=== PATIENT | female | born 1965 | race Caucasian/White ===

== ENCOUNTER 2018-09-20 05:09 | Day surgery (SDC) | payer OTHER ==
[~2018-09-20 05:09] MED LIST: AMPDEX10CR PO; AMPHETAMINE; CYMBALTA; DIURETIC; FLUO10 PO; LEVSOD100 PO; THYROID; TIMO.25OPS BOTHEYES; TRIHYD253A PO
== END 2018-09-20 23:14 | disposition home or self-care (01) ==
LOC: MOI US 05:09 → MOI MAM 07:45 → MOI US 07:45
DX: N64.1 Fat necrosis of breast (principal); N63.10 Unspecified lump in the right breast, unspecified quadrant
CPT/HCPCS: 19083; 77065; 88305; 88341; 88342; G0279

== ENCOUNTER 2020-07-12 09:08 | Day surgery (SDC) | payer OTHER | END 2020-07-12 23:07 | disposition home or self-care (01) | LOC: MOI US 09:08 → MOI MAM 09:30 → MOI US 23:07 | DX: N64.1 Fat necrosis of breast (principal) | CPT/HCPCS: 19083; 77065; 88305; 88342; A4648 ==

== ENCOUNTER → 2024-07-29 | Outpatient (CLI) | payer OTHER | LOC: LAB SHORT 18:21 → LAB 18:21 | DX: R60.0 Localized edema (principal) | CPT/HCPCS: 85379 ==